=== PATIENT | female | born 1945 ===

== ENCOUNTER 2019-02-14 13:45 | Inpatient (IN) | payer OTHER ==
[~2019-02-14] VITALS: Ht 157.5 cm; Wt 115.2 kg
[2019-02-14] MEDS ORDERED: INSULIN NPH (16:19)
[2019-02-14] MEDS ORDERED: NP THYROID15 MG (16:20)
[2019-02-14] MEDS ORDERED: COREG (16:20)
[2019-02-14] MEDS ORDERED: COZAAR100 MG PO (16:21)
[2019-02-14] MEDS ORDERED: ZETIA10 MG PO (16:21)
[2019-02-14] MEDS ORDERED: LISINOP PO (16:21)
[2019-02-14] MEDS ORDERED: SYNTHROID75 MCG PO (16:22)
[2019-02-14] MEDS ORDERED: PLETAL PO (16:22)
[2019-02-14] MEDS ORDERED: GABAPENTIN300 MG PO (16:22)
[2019-02-14] MEDS ORDERED: FOLIC ACID1 MG PO (16:22)
[2019-02-14] MEDS ORDERED: MULTIPLE VITAM1 EACH PO (16:23)
[2019-02-15] MEDS ORDERED: NOVOLIN 70100 UNIT/2 (10:31)
[2019-02-15] MEDS ORDERED: LASIX20 MG PO (10:32)
[2019-02-15] MEDS ORDERED: PLAVIX75 MG PO (10:32)
[2019-02-15] MEDS ORDERED: SIMVASTATIN40 MG PO (10:33)
[2019-02-15] MEDS ORDERED: ISOSORBIDE MON120 MG PO (10:33)
[2019-02-15] MEDS ORDERED: LIBRAX (10:34)
[2019-02-15] MEDS ORDERED: CILOSTAZOL100 MG PO (10:35)
[2019-02-15] MEDS ORDERED: OMEPRAZOLE20 MG PO (10:35)
== END 2019-02-19 10:59 | disposition home or self-care (01) | DRG 743 ==
LOC: O/R 13:45 → OB/GYN 02-17 07:00 → O/R 02-17 07:00 → OB/GYN 02-17 13:29 → O/R 02-17 13:45 → OB/GYN 02-19 10:59
PROVIDERS: ADMIT Obstetrics & Gynecology Gynecologic Oncology
PROC: 0UT74ZZ Resection of Bilateral Fallopian Tubes, Percutaneous Endoscopic Approach (ICD-10-PCS; 2019-02-17)
PROC: 0UT24ZZ Resection of Bilateral Ovaries, Percutaneous Endoscopic Approach (ICD-10-PCS; 2019-02-17)
PROC: 07BC4ZX Excision of Pelvis Lymphatic, Percutaneous Endoscopic Approach, Diagnostic (ICD-10-PCS; 2019-02-17)
PROC: 0UT94ZZ Resection of Uterus, Percutaneous Endoscopic Approach (ICD-10-PCS; principal; 2019-02-17 12:30)
DX: D25.1 Intramural leiomyoma of uterus (principal); N72 Inflammatory disease of cervix uteri; D27.1 Benign neoplasm of left ovary; N85.01 Benign endometrial hyperplasia